=== PATIENT | male | born 1980 | race Caucasian/White ===

== ENCOUNTER 2017-07-21 16:59 | Emergency (ER) | payer OTHER ==
[2017-07-21 17:04] VITALS: BP 108/63
[2017-07-21] MEDS ORDERED: NACL 0.9% 500 ML 500 ML IV ONE (22:07)
[2017-07-21] MEDS ORDERED: FUL-GLO OP ONE (22:51)
[2017-07-21] MEDS ORDERED: TETRACAINE 0.5% ONE (22:51)
[2017-07-21] MEDS ORDERED: BSS 1 DROPS, TETRACAINE 0.5% 1 DROPS, FUL-GLO 0.6 MG OU ONE (22:51)
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
== END 2017-07-22 00:10 | disposition home or self-care (01) ==
LOC: ED 16:59
DX: S05.01XA Injury of conjunctiva and corneal abrasion without foreign body, right eye, initial encounter (principal); S05.02XA Injury of conjunctiva and corneal abrasion without foreign body, left eye, initial encounter; X58.XXXA Exposure to other specified factors, initial encounter; Y93.89 Activity, other specified; Y92.89 Other specified places as the place of occurrence of the external cause; Y99.8 Other external cause status
CPT/HCPCS: 99283; J7040